=== PATIENT | female | born 1980 | race Caucasian/White ===

== ENCOUNTER 2024-10-29 20:43 | Inpatient (IN) | payer SELFPAY ==
[~2024-10-29] VITALS: Ht 149.9 cm; Wt 77.6 kg
[~2024-10-29 20:43] MED LIST: ASPIRIN EC81 MG PO; ATORVASTATIN CA20 MG PO; COZAAR25 MG PO; RELION NOV100 UNIT/1; RELION NOV100 UNIT/1 SC; TOPROL XL25 MG PO
[2024-10-29 20:45] VITALS: TEMP 99.2
[2024-10-29] MEDS ORDERED: Morphine 4mg INJECTION 4 MG/ML INJ IV STA (21:00)
[2024-10-29] MEDS ORDERED: SODIUM CHLORIDE 0.9% 1000ML 1,000 ML IV STA (21:01)
[2024-10-29] MEDS: SODIUM CHLORIDE 0.9% 1000ML 1,000 ML IV STA ×2 (21:24→21:25)
[2024-10-29] MEDS: ONDANSETRON HCL INJ 2MG/ML 2ML 2 MG/ML VIAL IV STA (21:25)
[2024-10-29] MEDS: ACETAMINOPHEN 325 MG TAB PO STA (21:26)
[2024-10-29 21:30] LABS: BASOPHILS # (AUTO) 0.1 (0.0-0.1); BASOPHILS % 0.3 % (0.0-1.0); EOSINOPHILS % 0.2 % (0.0-6.0); HEMATOCRIT 38.3 % (34.2-44.1); HEMOGLOBIN 12.6 g/dL (12.0-16.0); LYMPHOCYTES # (AUTO) 0.6 (1.0-3.2); LYMPHOCYTES % 3.4 % (18.0-39.1); MEAN CORPUSCULAR HEMOGLOBIN 28.4 pg (28-32); MEAN CORPUSCULAR HGB CONC 32.9 g/dL (31-35); MEAN CORPUSCULAR VOLUME 86.5 fL (81-99); MONOCYTES % 6.1 % (4.4-11.3); NEUTROPHILS # (AUTO) 14.8 (2.1-6.9); NEUTROPHILS % 89.3 % (38.7-80.0); PLATELET COUNT 307 x10e3/uL (140-360); RED BLOOD COUNT 4.43 x10e6/uL (3.6-5.1); RED CELL DISTRIBUTION WIDTH 13.5 % (11.7-14.4); WHITE BLOOD COUNT 16.61 x10e3/uL (4.8-10.8)
[2024-10-29 21:53] LABS: ALANINE AMINOTRANSFERASE 21 IU/L (0-55); ALBUMIN 2.5 g/dL (3.5-5.0); ALBUMIN/GLOBULIN RATIO 0.5 (0.8-2.0); ALKALINE PHOSPHATASE 200 IU/L (40-150); ANION GAP 18.6 mmol/L (8-16); BLOOD UREA NITROGEN 19 mg/dL (7-26); BUN/CREATININE RATIO 14 (6-25); CALCIUM 9.8 mg/dL (8.4-10.2); CARBON DIOXIDE 13 mmol/L (22-29); CHLORIDE 98 mmol/L (98-107); CREATININE, SERUM 1.32 mg/dL (0.57-1.11); EST GLOMERULAR FILTRATION RATE 52 ML/MIN (>=60); LIPASE 10 U/L (8-78); POTASSIUM 4.6 mmol/L (3.5-5.1); SODIUM 125 mmol/L (136-145); TOTAL PROTEIN 7.2 g/dL (6.5-8.1)
[2024-10-29 21:57] LABS: BILIRUBIN,TOTAL < 0.1 mg/dL (0.2-1.2); GLUCOSE 566 mg/dL (74-118)
[2024-10-29 22:16] LABS: CLARITY,URINE CLEAR (CLEAR); COLOR,URINE ORANGE (YELLOW); LEUKOCYTE ESTERASE ,URINE NEGATIVE (NEGATIVE); NITRITE,URINE POSITIVE (NEGATIVE); PH,URINE 5.5 (5 - 7)
[2024-10-29 22:17] LABS: BILIRUBIN,URINE SMALL (NEGATIVE); GLUCOSE, URINE >=1000 (NEGATIVE); KETONES,URINE 2+ (NEGATIVE); PREGNANCY TEST, URINE NEGATIVE (NEGATIVE); PROTEIN,URINE DIPSTICK 2+ (NEGATIVE); URINE UROBILINOGEN 1 mg/dL (0.2 - 1)
[2024-10-29 22:18] LABS: OPIATES SCREEN,URINE NEGATIVE (NEGATIVE); PHENCYCLIDINE SCREEN,URINE NEGATIVE (NEGATIVE)
[2024-10-29 22:19] LABS: AMPHETAMINES SCREEN,URINE NEGATIVE (NEGATIVE); BENZODIAZEPINES SCREEN,URINE NEGATIVE (NEGATIVE); CANNABINOIDS SCREEN,URINE POSITIVE (NEGATIVE); COCAINE SCREEN,URINE POSITIVE (NEGATIVE); METHADONE SCREEN, URINE NEGATIVE (NEGATIVE)
[2024-10-29 22:22] LABS: RBC,URINE 0-5 /HPF (0-5)
[2024-10-29 22:23] LABS: AMORPHOUS SEDIMENT,URINE FEW; BACTERIA,URINE MODERATE /HPF; EPITHELIAL CELLS,URINE FEW /LPF
[2024-10-29] MEDS ORDERED: IOPAMIDOL 370 MG/ML 100 ML INFUS..BTL INJ ONE (22:28)
[2024-10-29] MEDS: DEXTROSE 5%/0.45% SOD CHL 1,000 ML IV SCH (22:30)
[2024-10-29] MEDS: INSULIN REGULAR, HUMAN 100 UNIT/1 ML IV STA (22:33)
[2024-10-29] MEDS: KETOROLAC TROMETHAMINE 30 MG/ML VIAL IV STA (23:14)
[2024-10-29] MEDS: INSULIN REGULAR, HUMAN 3ML VL 100 UNIT in SODIUM CHLORIDE 0.9% 100 ML IV SCH (23:38)
[2024-10-30] VITALS (32 sets, daily range): BP systolic 96–140; BP diastolic 63–96; PULSE 87–143; RESP 8–36; TEMP 98.1–101.2; O2SAT 93–100
[2024-10-30] MEDS: SODIUM CHLORIDE 0.9% 1000ML 1,000 ML IV SCH (00:03)
[2024-10-30 02:40] LABS: ANION GAP 13.6 mmol/L (8-16); CALCIUM 8.5 mg/dL (8.4-10.2); CREATININE, SERUM 0.86 mg/dL (0.57-1.11); MAGNESIUM 1.7 MG/DL (1.3-2.1); POTASSIUM 3.6 mmol/L (3.5-5.1)
[2024-10-30 02:41] LABS: EOSINOPHILS % (MANUAL) 1 % (0-7); LYMPHOCYTES % (MANUAL) 3 % (19-48); MONOCYTES % (MANUAL) 6 % (3.4-9.0); MYELOCYTES % (MANUAL) 1 % (0-0); NEUTROPHILS % (MANUAL) 89 % (40-74)
[2024-10-30 02:42] LABS: PLATELET ESTIMATE ADEQUATE; PLATELET MORPHOLOGY COMMENT NORMAL; RBC MORPHOLOGY COMMENT NORMAL
[2024-10-30 02:55] LABS: CREATINE KINASE 14 IU/L (29-168)
[2024-10-30 03:21] LABS: TROPONIN I < 0.001 ng/mL (0-0.300)
[2024-10-30] MEDS: MAGNESIUM SULF 1GRAM/DEXTROSE 100 ML IV PRN (03:32)
[2024-10-30] MEDS: Morphine 4mg INJECTION 4 MG/ML INJ IV PRN (03:55)
[2024-10-30 07:04] LABS: BASOPHILS # (AUTO) 0.1 (0.0-0.1); BASOPHILS % 0.9 % (0.0-1.0); EOSINOPHILS # (AUTO) 0.1 (0.0-0.4); EOSINOPHILS % 0.4 % (0.0-6.0); HEMATOCRIT 38.5 % (34.2-44.1); HEMOGLOBIN 12.4 g/dL (12.0-16.0); LYMPHOCYTES # (AUTO) 0.6 (1.0-3.2); LYMPHOCYTES % 3.7 % (18.0-39.1); MEAN CORPUSCULAR HEMOGLOBIN 28.4 pg (28-32); MEAN CORPUSCULAR HGB CONC 32.2 g/dL (31-35); MEAN CORPUSCULAR VOLUME 88.3 fL (81-99); MONOCYTES # (AUTO) 0.7 (0.2-0.8); MONOCYTES % 4.2 % (4.4-11.3); PLATELET COUNT 227 x10e3/uL (140-360); RED BLOOD COUNT 4.36 x10e6/uL (3.6-5.1); RED CELL DISTRIBUTION WIDTH 13.4 % (11.7-14.4); WHITE BLOOD COUNT 15.51 x10e3/uL (4.8-10.8)
[2024-10-30 07:55] LABS: ALBUMIN/GLOBULIN RATIO 0.5 (0.8-2.0); ANION GAP 15.3 mmol/L (8-16); BILIRUBIN,TOTAL 0.4 mg/dL (0.2-1.2); CALCIUM 8.8 mg/dL (8.4-10.2); CREATININE, SERUM 0.82 mg/dL (0.57-1.11); POTASSIUM 4.3 mmol/L (3.5-5.1); TOTAL PROTEIN 6.3 g/dL (6.5-8.1)
[2024-10-30] MEDS: KETOROLAC TROMETHAMINE 30 MG/ML VIAL IV PRN (08:56)
[2024-10-30] MEDS: GABAPENTIN 100 MG CAP PO SCH (09:04)
[2024-10-30 09:48] LABS: BAND NEUTROPHILS % (MANUAL) 1 %; LYMPHOCYTES % (MANUAL) 4 % (19-48); MONOCYTES % (MANUAL) 5 % (3.4-9.0); NEUTROPHILS % (MANUAL) 90 % (40-74); PLATELET ESTIMATE ADEQUATE; PLATELET MORPHOLOGY COMMENT NORMAL; RBC MORPHOLOGY COMMENT NORMAL
[2024-10-30 10:10] LABS: TROPONIN I 0.004 ng/mL (0-0.300)
[2024-10-30 10:30] LABS: ABG HCO3 15 mmol/L (22-26); ABG PCO2 32 mmHg (35-45); ABG PH 7.27 (7.35-7.45); ABG PO2 16 mmHg (80-105); ABG TCO2 16
[2024-10-30] MEDS: HYDROCODONE/APAP 10MG-325MG TAB PO PRN (12:48)
[2024-10-30 12:54] LABS: CALCIUM 8.4 mg/dL (8.4-10.2); CREATININE, SERUM 0.73 mg/dL (0.57-1.11); MAGNESIUM 2.1 MG/DL (1.3-2.1)
[2024-10-30] MEDS: HYDROMORPHONE 1MG/1ML INJ IV PRN (14:40)
[2024-10-30] MEDS: ENOXAPARIN SOD INJ 40 MG/0.4 ML SYR SC SCH (16:48)
[2024-10-30 17:11] LABS: ANION GAP 12.7 mmol/L (8-16); CALCIUM 8.2 mg/dL (8.4-10.2); CREATININE, SERUM 0.79 mg/dL (0.57-1.11); MAGNESIUM 1.9 MG/DL (1.3-2.1); POTASSIUM 3.7 mmol/L (3.5-5.1)
[2024-10-30] MEDS: ATORVASTATIN 20 MG TAB PO SCH (20:15)
[2024-10-30 22:02] LABS: ANION GAP 15.9 mmol/L (8-16); CREATININE, SERUM 0.87 mg/dL (0.57-1.11); MAGNESIUM 2.1 MG/DL (1.3-2.1); POTASSIUM 3.9 mmol/L (3.5-5.1)
[2024-10-30 22:48] LABS: TROPONIN I 0.009 ng/mL (0-0.300)
[2024-10-31] VITALS (27 sets, daily range): BP systolic 106–138; BP diastolic 69–100; PULSE 108–132; RESP 15–32; TEMP 98.6–100.1; O2SAT 97–100
[2024-10-31 01:44] LABS: ANION GAP 13.9 mmol/L (8-16); CALCIUM 8.6 mg/dL (8.4-10.2); CREATININE, SERUM 0.84 mg/dL (0.57-1.11); POTASSIUM 3.9 mmol/L (3.5-5.1)
[2024-10-31] MEDS: ACETAMINOPHEN 325 MG TAB PO STA (05:19)
[2024-10-31 07:03] LABS: BASOPHILS # (AUTO) 0.1 (0.0-0.1); BASOPHILS % 0.8 % (0.0-1.0); EOSINOPHILS # (AUTO) 0.1 (0.0-0.4); EOSINOPHILS % 0.8 % (0.0-6.0); HEMATOCRIT 31.8 % (34.2-44.1); HEMOGLOBIN 10.3 g/dL (12.0-16.0); LYMPHOCYTES # (AUTO) 1.3 (1.0-3.2); LYMPHOCYTES % 6.7 % (18.0-39.1); MEAN CORPUSCULAR HEMOGLOBIN 28.5 pg (28-32); MEAN CORPUSCULAR HGB CONC 32.4 g/dL (31-35); MEAN CORPUSCULAR VOLUME 87.8 fL (81-99); MONOCYTES % 5.2 % (4.4-11.3); NEUTROPHILS # (AUTO) 15.8 (2.1-6.9); NEUTROPHILS % 84.8 % (38.7-80.0); PLATELET COUNT 182 x10e3/uL (140-360); RED BLOOD COUNT 3.62 x10e6/uL (3.6-5.1); RED CELL DISTRIBUTION WIDTH 14.4 % (11.7-14.4); WHITE BLOOD COUNT 18.64 x10e3/uL (4.8-10.8)
[2024-10-31 07:26] LABS: ANION GAP 14.5 mmol/L (8-16); CALCIUM 8.5 mg/dL (8.4-10.2); CREATININE, SERUM 0.76 mg/dL (0.57-1.11); MAGNESIUM 1.9 MG/DL (1.3-2.1); POTASSIUM 3.5 mmol/L (3.5-5.1)
[2024-10-31 12:36] LABS: CALCIUM 8.4 mg/dL (8.4-10.2); CREATININE, SERUM 0.88 mg/dL (0.57-1.11)
[2024-10-31] MEDS: POTASSIUM CHLORIDE 20MEQ/100ML 200 ML IV PRN (13:59)
[2024-10-31] MEDS: POTASSIUM CHLORIDE 20 MEQ TAB CR PO STA (15:14)
[2024-10-31 17:15] LABS: ANION GAP 13.3 mmol/L (8-16); CALCIUM 8.5 mg/dL (8.4-10.2); CREATININE, SERUM 0.8 mg/dL (0.57-1.11); MAGNESIUM 1.9 MG/DL (1.3-2.1); POTASSIUM 3.3 mmol/L (3.5-5.1)
[2024-10-31 20:07] LABS: ANION GAP 14.5 mmol/L (8-16); CALCIUM 7.9 mg/dL (8.4-10.2); CREATININE, SERUM 0.78 mg/dL (0.57-1.11); MAGNESIUM 1.7 MG/DL (1.3-2.1); POTASSIUM 3.5 mmol/L (3.5-5.1)
[2024-11-01] VITALS (18 sets, daily range): BP systolic 117–151; BP diastolic 84–98; PULSE 106–132; RESP 12–31; TEMP 98–98.9; O2SAT 97–100
[2024-11-01 08:03] LABS: ANION GAP 13.7 mmol/L (8-16); CALCIUM 8.4 mg/dL (8.4-10.2); CREATININE, SERUM 0.73 mg/dL (0.57-1.11); MAGNESIUM 1.7 MG/DL (1.3-2.1); POTASSIUM 3.7 mmol/L (3.5-5.1)
[2024-11-01] MEDS ORDERED: DEXTROSE 50% SYRINGE 50 ML IV PRN (08:15)
[2024-11-01] MEDS: INSULIN GLARGINE 100 UNITS/ML VIAL SQ SCH (08:33)
[2024-11-01] MEDS: CEFAZOLIN SODIUM 2 GM in SODIUM CHLORIDE 0.9% 100 ML IV SCH (08:34)
[2024-11-01] MEDS: SODIUM BICARBONATE 8.4% VIAL 50 ML in SODIUM CHLORIDE 0.45% 1,000 ML IV ONE (09:16)
[2024-11-01] MEDS: INSULIN LISPRO 100 UNIT/1 ML 3ML VIAL SQ SCH (12:06)
[2024-11-01] MEDS: MAGNESIUM SULF 1GRAM/DEXTROSE 100 ML IV ONE (20:19)
[2024-11-02] VITALS (9 sets, daily range): BP systolic 120–134; BP diastolic 72–97; PULSE 105–112; RESP 16–18; TEMP 97.7–99.7; O2SAT 96–99
[2024-11-02] MEDS: SODIUM CHLORIDE 0.9% 250ML 250 ML ONE (00:13)
[2024-11-02 05:16] LABS: BASOPHILS # (AUTO) 0.1 (0.0-0.1); BASOPHILS % 0.5 % (0.0-1.0); EOSINOPHILS # (AUTO) 0.3 (0.0-0.4); EOSINOPHILS % 1.5 % (0.0-6.0); HEMOGLOBIN 9.2 g/dL (12.0-16.0); LYMPHOCYTES # (AUTO) 2.3 (1.0-3.2); LYMPHOCYTES % 11.1 % (18.0-39.1); MEAN CORPUSCULAR HEMOGLOBIN 27.8 pg (28-32); MEAN CORPUSCULAR HGB CONC 32.9 g/dL (31-35); MEAN CORPUSCULAR VOLUME 84.6 fL (81-99); MONOCYTES # (AUTO) 1.6 (0.2-0.8); MONOCYTES % 7.5 % (4.4-11.3); NEUTROPHILS # (AUTO) 15.6 (2.1-6.9); NEUTROPHILS % 74.3 % (38.7-80.0); PLATELET COUNT 234 x10e3/uL (140-360); RED BLOOD COUNT 3.31 x10e6/uL (3.6-5.1); RED CELL DISTRIBUTION WIDTH 14.8 % (11.7-14.4); WHITE BLOOD COUNT 21.03 x10e3/uL (4.8-10.8)
[2024-11-02 05:49] LABS: ANION GAP 14.5 mmol/L (8-16); CALCIUM 8.2 mg/dL (8.4-10.2); CREATININE, SERUM 0.72 mg/dL (0.57-1.11); POTASSIUM 3.5 mmol/L (3.5-5.1)
[2024-11-02] MEDS: ONDANSETRON HCL INJ 2MG/ML 2ML 2 MG/ML VIAL IV PRN (09:42)
[2024-11-02 09:43] LABS: EOSINOPHILS % (MANUAL) 1 % (0-7); LYMPHOCYTES % (MANUAL) 15 % (19-48); MONOCYTES % (MANUAL) 6 % (3.4-9.0); NEUTROPHILS % (MANUAL) 78 % (40-74); PLATELET ESTIMATE ADEQUATE; PLATELET MORPHOLOGY COMMENT NORMAL; RBC MORPHOLOGY COMMENT NORMAL
[2024-11-03] VITALS (10 sets, daily range): BP systolic 122–136; BP diastolic 80–88; PULSE 90–112; RESP 16–20; TEMP 97.6–98.9; O2SAT 96–100
[2024-11-03] MEDS: KETOROLAC TROMETHAMINE 30 MG/ML VIAL IV PRN (00:49)
[2024-11-03] MEDS ORDERED: CEFAZOLIN SODIUM 2 GM ONE (00:59)
[2024-11-03 05:24] LABS: BASOPHILS # (AUTO) 0.1 (0.0-0.1); BASOPHILS % 0.5 % (0.0-1.0); EOSINOPHILS # (AUTO) 0.4 (0.0-0.4); EOSINOPHILS % 1.8 % (0.0-6.0); HEMATOCRIT 27.2 % (34.2-44.1); LYMPHOCYTES # (AUTO) 2.6 (1.0-3.2); LYMPHOCYTES % 12.7 % (18.0-39.1); MEAN CORPUSCULAR HEMOGLOBIN 28.1 pg (28-32); MEAN CORPUSCULAR HGB CONC 33.1 g/dL (31-35); MONOCYTES # (AUTO) 1.3 (0.2-0.8); MONOCYTES % 6.6 % (4.4-11.3); NEUTROPHILS # (AUTO) 14.1 (2.1-6.9); NEUTROPHILS % 69.6 % (38.7-80.0); PLATELET COUNT 254 x10e3/uL (140-360); RED CELL DISTRIBUTION WIDTH 14.3 % (11.7-14.4); WHITE BLOOD COUNT 20.25 x10e3/uL (4.8-10.8)
[2024-11-03 05:44] LABS: ANION GAP 13.6 mmol/L (8-16); CALCIUM 8.2 mg/dL (8.4-10.2); CREATININE, SERUM 0.74 mg/dL (0.57-1.11); POTASSIUM 3.6 mmol/L (3.5-5.1)
[2024-11-03] MEDS: GABAPENTIN 100 MG CAP PO SCH (09:28)
[2024-11-03 10:48] LABS: LYMPHOCYTES % (MANUAL) 14 % (19-48); METAMYELOCYTES % (MANUAL) 1 % (0-0); MONOCYTES % (MANUAL) 2 % (3.4-9.0); MYELOCYTES % (MANUAL) 1 % (0-0); NEUTROPHILS % (MANUAL) 82 % (40-74); PLATELET ESTIMATE ADEQUATE; PLATELET MORPHOLOGY COMMENT NORMAL
[2024-11-03 10:49] LABS: RBC MORPHOLOGY COMMENT NORMAL
[2024-11-03 15:25] LABS: FREE T4 (FREE THYROXINE) 1.08 ng/dL (0.8-1.8); THYROID STIMULATING HORMONE 2.4 uIU/mL (0.350-4.940)
[2024-11-03] MEDS: INSULIN LISPRO 100 UNIT/1 ML 3ML VIAL SQ SCH ×2 (18:04→18:05)
[2024-11-03] MEDS: INSULIN GLARGINE 100 UNITS/ML VIAL SQ SCH (20:58)
[2024-11-04 05:20] VITALS: BP 141/88; PULSE 95; RESP 19; TEMP 97.8; O2SAT 100
[2024-11-04 07:56] VITALS: BP 122/84; PULSE 95; RESP 16; TEMP 97; O2SAT 98
[2024-11-04 08:08] VITALS: BP 122/84; PULSE 95; RESP 16; TEMP 97.9; O2SAT 98
[2024-11-04] MEDS ORDERED: DOCUSATE SODIUM 100 MG CAP PO PRN (10:30)
[2024-11-04 11:42] VITALS: BP 137/90; PULSE 98; RESP 19; TEMP 98.8; O2SAT 99
[2024-11-04] MEDS: POLYETHYLENE GLYCOL 3350 17 GM PACK PO PRN (12:04)
[2024-11-04 15:28] VITALS: BP 124/79; PULSE 100; RESP 17; TEMP 98.1; O2SAT 100
[2024-11-04] MEDS: CELECOXIB 200 MG CAP PO PRN (15:41)
[2024-11-04 20:00] VITALS: BP 144/85; PULSE 104; RESP 18; TEMP 98.2; O2SAT 100
[2024-11-04] MEDS: INSULIN GLARGINE 100 UNITS/ML VIAL SQ SCH (21:57)
[2024-11-05] VITALS (8 sets, daily range): BP systolic 124–145; BP diastolic 80–91; PULSE 85–111; RESP 18; TEMP 97.7–98.2; O2SAT 95–100
[2024-11-05 08:15] LABS: BASOPHILS # (AUTO) 0.1 (0.0-0.1); BASOPHILS % 0.6 % (0.0-1.0); EOSINOPHILS # (AUTO) 0.3 (0.0-0.4); EOSINOPHILS % 1.7 % (0.0-6.0); HEMATOCRIT 28.6 % (34.2-44.1); HEMOGLOBIN 9.5 g/dL (12.0-16.0); LYMPHOCYTES # (AUTO) 2.7 (1.0-3.2); LYMPHOCYTES % 14.1 % (18.0-39.1); MEAN CORPUSCULAR HEMOGLOBIN 28.4 pg (28-32); MEAN CORPUSCULAR HGB CONC 33.2 g/dL (31-35); MEAN CORPUSCULAR VOLUME 85.6 fL (81-99); NEUTROPHILS # (AUTO) 13.2 (2.1-6.9); NEUTROPHILS % 68.3 % (38.7-80.0); PLATELET COUNT 348 x10e3/uL (140-360); RED BLOOD COUNT 3.34 x10e6/uL (3.6-5.1); RED CELL DISTRIBUTION WIDTH 14.3 % (11.7-14.4); WHITE BLOOD COUNT 19.36 x10e3/uL (4.8-10.8)
[2024-11-05] MEDS: INSULIN LISPRO 100 UNIT/1 ML 3ML VIAL SQ SCH ×2 (08:38→16:14)
[2024-11-05 08:43] LABS: CALCIUM 8.4 mg/dL (8.4-10.2); CREATININE, SERUM 0.74 mg/dL (0.57-1.11)
[2024-11-05 13:21] LABS: BAND NEUTROPHILS % (MANUAL) 8 %; EOSINOPHILS % (MANUAL) 1 % (0-7); LYMPHOCYTES % (MANUAL) 12 % (19-48); MONOCYTES % (MANUAL) 5 % (3.4-9.0); NEUTROPHILS % (MANUAL) 74 % (40-74)
[2024-11-05 13:22] LABS: PLATELET ESTIMATE ADEQUATE; PLATELET MORPHOLOGY COMMENT NORMAL; RBC MORPHOLOGY COMMENT NORMAL
[2024-11-05] MEDS: FUROSEMIDE INJ 10 MG/ML 4 ML VIAL IV ONE (15:06)
[2024-11-05] MEDS: INSULIN GLARGINE 100 UNITS/ML VIAL SQ SCH (21:55)
[2024-11-06] VITALS (10 sets, daily range): BP systolic 119–139; BP diastolic 56–94; PULSE 77–109; RESP 16–18; TEMP 97.4–99; O2SAT 94–100
[2024-11-06] MEDS: ACETAMINOPHEN 325 MG TAB PO PRN (04:04)
[2024-11-06 05:32] LABS: BASOPHILS # (AUTO) 0.1 (0.0-0.1); BASOPHILS % 0.6 % (0.0-1.0); EOSINOPHILS # (AUTO) 0.4 (0.0-0.4); EOSINOPHILS % 1.8 % (0.0-6.0); HEMATOCRIT 28.9 % (34.2-44.1); HEMOGLOBIN 9.3 g/dL (12.0-16.0); LYMPHOCYTES # (AUTO) 3.1 (1.0-3.2); LYMPHOCYTES % 15.9 % (18.0-39.1); MEAN CORPUSCULAR HEMOGLOBIN 27.9 pg (28-32); MEAN CORPUSCULAR HGB CONC 32.2 g/dL (31-35); MEAN CORPUSCULAR VOLUME 86.8 fL (81-99); MONOCYTES # (AUTO) 0.9 (0.2-0.8); MONOCYTES % 4.7 % (4.4-11.3); NEUTROPHILS # (AUTO) 13.5 (2.1-6.9); NEUTROPHILS % 68.8 % (38.7-80.0); PLATELET COUNT 397 x10e3/uL (140-360); RED BLOOD COUNT 3.33 x10e6/uL (3.6-5.1); RED CELL DISTRIBUTION WIDTH 14.1 % (11.7-14.4); WHITE BLOOD COUNT 19.63 x10e3/uL (4.8-10.8)
[2024-11-06 06:03] LABS: ANION GAP 15.8 mmol/L (8-16); CALCIUM 8.5 mg/dL (8.4-10.2); CREATININE, SERUM 0.76 mg/dL (0.57-1.11); POTASSIUM 4.8 mmol/L (3.5-5.1)
[2024-11-06] MEDS: INSULIN LISPRO 100 UNIT/1 ML 3ML VIAL SQ SCH (16:28)
[2024-11-06] MEDS: INSULIN GLARGINE 100 UNITS/ML VIAL SQ SCH (21:39)
[2024-11-07] MEDS: HYDROCODONE/APAP 10MG-325MG TAB PO PRN (04:10)
[2024-11-07 04:35] VITALS: BP 119/79; PULSE 88; RESP 19; TEMP 98.2; O2SAT 96
[2024-11-07 09:00] VITALS: BP 139/95; PULSE 81; RESP 18; TEMP 97.9; O2SAT 100
[2024-11-07 09:10] VITALS: BP 139/95; PULSE 81; RESP 18; TEMP 97.9; O2SAT 100
== END 2024-11-07 10:52 | disposition home or self-care (01) | DRG 871 ==
LOC: ER 20:47 → ERHOLD 23:01 → ICU 23:51 → MED/SURG 11-01 18:37
PROVIDERS: ADMIT Internal Medicine; ATTEND Internal Medicine
PROC: 3E03329 Introduction of Other Anti-infective into Peripheral Vein, Percutaneous Approach (ICD-10-PCS; principal; 2024-10-29)
PROC: 4A033R1 Measurement of Arterial Saturation, Peripheral, Percutaneous Approach (ICD-10-PCS; 2024-10-29)
PROC: 4A043R1 Measurement of Venous Saturation, Peripheral, Percutaneous Approach (ICD-10-PCS; 2024-10-29)
DX: A41.51 Sepsis due to Escherichia coli [E. coli] (principal); E10.10 Type 1 diabetes mellitus with ketoacidosis without coma; N12 Tubulo-interstitial nephritis, not specified as acute or chronic; R65.20 Severe sepsis without septic shock; I10 Essential (primary) hypertension; E78.5 Hyperlipidemia, unspecified; K76.0 Fatty (change of) liver, not elsewhere classified; E10.42 Type 1 diabetes mellitus with diabetic polyneuropathy; Z79.4 Long term (current) use of insulin; F14.10 Cocaine abuse, uncomplicated; E66.9 Obesity, unspecified; Z68.34 Body mass index [BMI] 34.0-34.9, adult; J45.20 Mild intermittent asthma, uncomplicated; G89.4 Chronic pain syndrome; Z91.148 Patient's other noncompliance with medication regimen for other reason; Z79.899 Other long term (current) drug therapy; Z79.82 Long term (current) use of aspirin
CPT/HCPCS: 36415; 74177; 80048; 80053; 80307; 81001; 81025; 82550; 82805; 82948; 83036; 83605; 83690; 83735; 84439; 84443; 84484; 85025; 87040; 87071; 87086; 87186; 87205; 93005; 94799; 96372; 99252; 99284; J1171; J1650; J1815; J1885; J1938; J2270; J2405; J2543; J3475; J3480; J7030; J7050; Q9967